=== PATIENT | male | born 1965 | race Caucasian/White ===

== ENCOUNTER 2017-08-18 08:14 | Emergency (ER) | payer OTHER ==
[~2017-08-18] VITALS: Ht 185.4 cm; Wt 158.3 kg
[2017-08-18] MEDS ORDERED: TESTIM5 GM TOP (08:33)
[2017-08-18] MEDS ORDERED: NORCO 5-325 TA1 EACH PO (10:20)
[2017-08-18 10:55] VITALS: BP 190/94
== END 2017-08-18 10:56 | disposition home or self-care (01) ==
LOC: M.ERS 08:14
DX: S82.434A Nondisplaced oblique fracture of shaft of right fibula, initial encounter for closed fracture (principal); X50.1XXA Overexertion from prolonged static or awkward postures, initial encounter; Y93.89 Activity, other specified; Y92.89 Other specified places as the place of occurrence of the external cause; Y99.8 Other external cause status

== ENCOUNTER → 2020-06-17 | Outpatient (CLI) | payer OTHER ==
[~2020-06-17] MED LIST: NORCO 5-325 TA1 EACH PO; TESTIM5 GM TOP
--- NOTE | ~2020-06-17 | TST ---
[place] [address] TREADMILL STRESS TEST Name: NENITA BRIZUELA JR Room: [facility]#: [id number] Admission: 06/17/20 Attend Phys: Renetta Aguirre MD Discharge: Date of : 63 Date of Service: 06/17/20 1605 Report #: [id number] THIS REPORT FOR: cc: Renetta Aguirre MD, Diane S. MD Blick, David R. MD [facility] ~ DATE OF SERVICE: 06/17/2020 EXERCISE STRESS TEST TITLE OF THE PROCEDURE: [place] protocol exercise stress test without imaging. INDICATIONS: Hypertension. FINDINGS: The patient had a pretest heart rate of 95, blood pressure 165/88. The patient was able to exercise for 7 minutes and 15 seconds, achieving a peak heart rate of 167, which was greater than 90% of maximum predicted heart rate for the patient's age. Peak blood pressure 244/80. In recovery, the patient had a heart rate of 115, blood pressure 176/98. The patient denied chest pain. His exercise was terminated due to elevated blood pressure. The patient's resting ECG showed a normal sinus rhythm. With exercise, there were no arrhythmias noted. The patient did develop 0.[address] segment depression in the inferolateral leads with exercise. There were no ST segment changes noted during recovery. IMPRESSION: 1. Exercise tolerance adequate. 2. Clinical response, nonischemic. 3. ECG response, indeterminate. This exercise stress test was felt to be indeterminate risk for predicting future cardiac events secondary to nonspecific ST-segment changes. If clinically indicated, would consider stress testing with imaging to improve the specificity of exercise stress testing to rule out ischemia. By: 1605 1715 Jefe Foreman MD, [facility] /nt
== END ==
LOC: M.CRD 14:33
PROVIDERS: ATTEND Internal Medicine
DX: I25.10 Atherosclerotic heart disease of native coronary artery without angina pectoris (principal)